=== PATIENT | female | born 1990 | race Caucasian/White ===

== ENCOUNTER 2017-03-07 09:22 | Outpatient (CLI) | payer OTHER ==
[2017-03-07 09:46] LABS: BASOPHILS # (AUTO) 0.2 K/uL (0.00-0.22); BASOPHILS % (AUTO) 2.8 % (0.0-2.0); EOSINOPHILS # (AUTO) 0.4 K/uL (0-0.4); HEMATOCRIT 39.2 % (36-48); HEMOGLOBIN 12.5 g/dL (12.0-16.0); LYMPHOCYTES # (AUTO) 1.9 K/uL (2.5-16.5); LYMPHOCYTES % (AUTO) 26.5 % (20.5-51.1); MEAN CORPUSCULAR HEMOGLOBIN 24 pg (27-31); MEAN CORPUSCULAR HGB CONC 32 g/dL (33-37); MEAN CORPUSCULAR VOLUME 75 fL (80-94); MONOCYTES # (AUTO) 0.4 K/uL (0.8-1.0); MONOCYTES % (AUTO) 5.3 % (1.7-9.3); NEUTROPHILS # (AUTO) 4.1 K/uL (1.8-7.7); NEUTROPHILS % (AUTO) 59.4 % (42.2-75.2); PLATELET COUNT (AUTO) 226 K/uL (140-450); RED BLOOD CELL COUNT(AUTO) 5.24 MIL/uL (4.20-5.40); RED CELL DISTRIBUTION WIDTH 13.8 % (11.6-13.7)
[2017-03-07 09:47] LABS: BILIRUBIN,URINE NEGATIVE (NEGATIVE); BLOOD, URINE NEGATIVE (NEGATIVE); COLOR,URINE YELLOW (YELLOW); LEUKOCYTE ESTERASE ,URINE TRACE (NEGATIVE); NITRITE, URINE NEGATIVE (NEGATIVE); PROTEIN,URINE NEGATIVE (NEGATIVE); UGLUCOSE NEGATIVE (NEGATIVE); UROBILINOGEN,URINE 0.2 EU/dL (0.2 - 1)
[2017-03-07 10:02] LABS: APPEARANCE,URINE HAZY (CLEAR)
[2017-03-07 10:04] LABS: BACTERIA,URINE 1+ /HPF (None Seen); MUCUS,URINE 1+ /LPF (None Seen); RBC,URINE 0-3 /HPF (0-5)
[2017-03-07 10:40] LABS: ALBUMIN 3.4 g/dL (3.4-5.0); ANION GAP 10.8 (8-16); CALCIUM 8.7 mg/dL (8.5-10.1); CARBON DIOXIDE 26.7 mmol/L (21-32); CHOL/HDL RATIO 2.7 (1-4.5); CREATININE 0.7 mg/dL (0.6-1.3); FREE T4 (FREE THYROXINE) 1.08 ng/dL (0.76-1.46); POTASSIUM 4.5 mmol/L (3.5-5.1); THYROID STIMULATING HORMONE 2.06 uIU/mL (0.34-3.74); TOTAL BILIRUBIN 0.3 mg/dL (0.0-1.0); TOTAL PROTEIN, SERUM 7.3 g/dL (6.4-8.2)
[2017-03-08 09:13] LABS: HEMOGLOBIN A1C 5.2 % (4.8-5.6)
[2017-03-08 09:52] LABS: VITAMIN D, 25-HYDROXY 21.3 ng/mL (30.0-100.0)
== END 2017-03-07 11:00 | disposition home or self-care (01) ==
LOC: MLB 09:22
PROVIDERS: ATTEND Family Medicine
DX: Z13.1 Encounter for screening for diabetes mellitus (principal); E03.9 Hypothyroidism, unspecified; E55.9 Vitamin D deficiency, unspecified
CPT/HCPCS: 36415; 80053; 81001; 82306; 83036; 84439; 84443; 85025

== ENCOUNTER 2017-07-23 10:02 | Outpatient (CLI) | payer OTHER | END 2017-07-23 22:50 | disposition home or self-care (01) | LOC: MRD 10:02 | PROVIDERS: ATTEND Family Medicine | DX: M41.9 Scoliosis, unspecified (principal); R29.890 Loss of height | CPT/HCPCS: 72081 ==

== ENCOUNTER 2017-08-18 16:41 | Outpatient (CLI) | payer OTHER | END 2017-08-18 19:44 | disposition home or self-care (01) | LOC: MRD 16:41 | PROVIDERS: ATTEND Family Medicine | DX: M25.472 Effusion, left ankle (principal) | CPT/HCPCS: 73610 ==

== ENCOUNTER 2017-08-24 09:25 | Emergency (ER) | payer OTHER ==
[~2017-08-24] VITALS: Ht 172.7 cm; Wt 105.5 kg
[2017-08-24 09:32] VITALS: BP 158/90
--- NOTE | 2017-08-24 10:00 | NUR ---
27 F BIB FRIEND WITH C/O RT/LT EYE IRRITATION WITH GREEN DISCHARGE ON RT EYE, HEARING MUFFLED TONE ON LT EAR; SORE THROAT/PAIN WHEN COUHGING 8/10 FOR 1 WK; PT DENIES ANY FEVER OR CHILLS; PT IS AOX4. RR ARE EVEN AND UNLABORED. NAD. ALL NEEDS MET AT THIS TIME. AWAITING ER MD CAMERON.
[2017-08-24 10:15] VITALS: BP 143/88
--- NOTE | 2017-08-24 10:15 | NUR ---
Patient discharged with v/s stable. Written and verbal after care instructions given and explained. Patient alert, oriented and verbalized understanding of instructions. Carried with steady gait. All questions addressed prior to discharge. ID band removed. Patient advised to follow up with PMD. Rx of cORTISPORIN AND pOLYTRIM given. Patient educated on indication of medication including possible reaction and side effects. Opportunity to ask questions provided and answered.
== END 2017-08-24 10:15 | disposition home or self-care (01) ==
LOC: EEVIPCON 09:25 → MED 09:25
DX: H10.9 Unspecified conjunctivitis (principal); H60.92 Unspecified otitis externa, left ear
CPT/HCPCS: 99283

== ENCOUNTER 2018-03-06 10:51 | Outpatient (CLI) | payer OTHER ==
[2018-03-06 11:40] LABS: BASOPHILS # (AUTO) 0.1 K/uL (0.00-0.22); EOSINOPHILS # (AUTO) 0.3 K/uL (0-0.4); EOSINOPHILS % (AUTO) 4.6 % (0.0-4.0); HEMOGLOBIN 13.1 g/dL (12.0-16.0); LYMPHOCYTES # (AUTO) 1.9 K/uL (2.5-16.5); LYMPHOCYTES % (AUTO) 29.2 % (20.5-51.1); MEAN CORPUSCULAR HEMOGLOBIN 24 pg (27-31); MEAN CORPUSCULAR HGB CONC 32 g/dL (33-37); MEAN CORPUSCULAR VOLUME 74.6 fL (80-94); MONOCYTES # (AUTO) 0.4 K/uL (0.8-1.0); MONOCYTES % (AUTO) 6.1 % (1.7-9.3); NEUTROPHILS # (AUTO) 3.9 K/uL (1.8-7.7); NEUTROPHILS % (AUTO) 59.1 % (42.2-75.2); PLATELET COUNT (AUTO) 259 K/uL (140-450); WHITE BLOOD COUNT (AUTO) 6.6 K/uL (4.8-10.8)
[2018-03-06 12:38] LABS: APPEARANCE,URINE HAZY (CLEAR); BILIRUBIN,URINE NEGATIVE (NEGATIVE); BLOOD, URINE 3+ (NEGATIVE); COLOR,URINE YELLOW (YELLOW); LEUKOCYTE ESTERASE ,URINE NEGATIVE (NEGATIVE); NITRITE, URINE NEGATIVE (NEGATIVE); UGLUCOSE NEGATIVE (NEGATIVE)
[2018-03-06 12:48] LABS: ALBUMIN 3.5 g/dL (3.4-5.0); ANION GAP 10.1 (8-16); CARBON DIOXIDE 27.1 mmol/L (21-32); CREATININE 0.6 mg/dL (0.6-1.3); POTASSIUM 4.2 mmol/L (3.5-5.1); THYROID STIMULATING HORMONE 1.6 uIU/mL (0.34-3.74); TOTAL BILIRUBIN 0.2 mg/dL (0.0-1.0)
[2018-03-06 12:49] LABS: RBC,URINE 3-10 (FEW) /HPF (0-5); WBC,URINE 0-5 (RARE) /HPF (0-5)
== END 2018-03-06 20:27 | disposition home or self-care (01) ==
LOC: MGI 10:51
PROVIDERS: ATTEND Family Medicine
DX: I10 Essential (primary) hypertension (principal)
CPT/HCPCS: 36415; 80053; 81001; 84443; 85025

== ENCOUNTER 2019-01-31 07:35 | Outpatient (CLI) | payer OTHER | END 2019-01-31 21:09 | disposition home or self-care (01) | LOC: MRD 07:35 | PROVIDERS: ATTEND Preventive Medicine Preventive Medicine/Occupational Environmental Medicine | DX: M47.816 Spondylosis without myelopathy or radiculopathy, lumbar region (principal); M48.061 Spinal stenosis, lumbar region without neurogenic claudication | CPT/HCPCS: 72100 ==

== ENCOUNTER 2019-05-11 07:01 | Outpatient (CLI) | payer OTHER ==
[2019-05-11 08:44] LABS: ALBUMIN 3.6 g/dL (3.4-5.0); CARBON DIOXIDE 27.1 mmol/L (21-32); CHOL/HDL RATIO 3.2 (1-4.5); CREATININE 0.7 mg/dL (0.6-1.3); POTASSIUM 4.1 mmol/L (3.5-5.1); THYROID STIMULATING HORMONE 1.95 uIU/mL (0.34-3.74); TOTAL BILIRUBIN 0.4 mg/dL (0.0-1.0)
[2019-05-11 08:55] LABS: BASOPHILS % (AUTO) 0.4 % (0.0-2.0); EOSINOPHILS # (AUTO) 0.2 K/uL (0-0.4); HEMATOCRIT 40.7 % (36-48); HEMOGLOBIN 12.8 g/dL (12.0-16.0); LYMPHOCYTES # (AUTO) 2.1 K/uL (2.5-16.5); LYMPHOCYTES % (AUTO) 27.3 % (20.5-51.1); MEAN CORPUSCULAR HEMOGLOBIN 24 pg (27-31); MEAN CORPUSCULAR HGB CONC 32 g/dL (33-37); MEAN CORPUSCULAR VOLUME 76.4 fL (80-94); MONOCYTES # (AUTO) 0.4 K/uL (0.8-1.0); MONOCYTES % (AUTO) 5.3 % (1.7-9.3); NEUTROPHILS # (AUTO) 4.8 K/uL (1.8-7.7); PLATELET COUNT (AUTO) 267 K/uL (140-450); RED BLOOD CELL COUNT(AUTO) 5.33 MIL/uL (4.20-5.40); RED CELL DISTRIBUTION WIDTH 14.7 % (11.6-13.7); WHITE BLOOD COUNT (AUTO) 7.5 K/uL (4.8-10.8)
[2019-05-11 10:09] LABS: BILIRUBIN,URINE NEGATIVE (NEGATIVE); BLOOD, URINE NEGATIVE (NEGATIVE); COLOR,URINE YELLOW (YELLOW); NITRITE, URINE NEGATIVE (NEGATIVE); UGLUCOSE NEGATIVE (NEGATIVE)
[2019-05-11 11:01] LABS: RBC,URINE 0-5 /HPF (0-5)
[2019-05-11 11:02] LABS: LEUKOCYTE ESTERASE ,URINE 1+ (NEGATIVE); WBC,URINE 0-5 /HPF (0-5)
[2019-05-11 11:03] LABS: APPEARANCE,URINE SLIGHTLY HAZY (CLEAR)
[2019-05-12 06:07] LABS: T4 (THYROXINE) 10.9 ug/dL (4.5-12.0); TRIIODOTHYRONINE FREE 3.9 pg/mL (2.0-4.4)
== END 2019-05-11 20:51 | disposition home or self-care (01) ==
LOC: MLB 07:01 → MMU 07:33 → MLB 07:33
PROVIDERS: ATTEND Preventive Medicine Preventive Medicine/Occupational Environmental Medicine
DX: E78.5 Hyperlipidemia, unspecified (principal); I10 Essential (primary) hypertension; E66.01 Morbid (severe) obesity due to excess calories; R53.83 Other fatigue
CPT/HCPCS: 36415; 80053; 81001; 82306; 83036; 84436; 84443; 84481; 85025; 87086

== ENCOUNTER 2019-07-17 12:47 | Emergency (ER) | payer OTHER ==
[~2019-07-17] VITALS: Ht 172.7 cm; Wt 123.8 kg
[2019-07-17 12:51] VITALS: BP 153/92
--- NOTE | 2019-07-17 12:58 | NUR ---
Patient ambulated to bed 4. RN evaluating patient at bedside.
--- NOTE | 2019-07-17 13:06 | NUR ---
Dr. Jensen is evaluating the patient at bedside.
[2019-07-17 13:17] VITALS: BP 153/92
--- NOTE | 2019-07-17 13:17 | NUR ---
PER DR LI TO CANCEL ALL ORDERS PENDING AND D/C PATIENT.
--- NOTE | 2019-07-17 13:17 | NUR ---
Patient discharged with v/s stable. Written and verbal after care instructions given and explained. Patient alert, oriented and verbalized understanding of instructions. Ambulatory with steady gait. All questions addressed prior to discharge. ID band removed. Patient advised to follow up with PMD. Rx of TRAMADOL, MOTRIN given. Patient educated on indication of medication including possible reaction and side effects. Opportunity to ask questions provided and answered.
== END 2019-07-17 13:17 | disposition home or self-care (01) ==
LOC: MED 12:47
DX: M54.40 Lumbago with sciatica, unspecified side (principal)
CPT/HCPCS: 99281

== ENCOUNTER 2020-09-24 09:44 | Outpatient (CLI) | payer OTHER ==
[2020-09-24 10:14] LABS: BASOPHILS % (AUTO) 0.5 % (0.0-2.0); EOSINOPHILS # (AUTO) 0.4 K/uL (0-0.4); HEMATOCRIT 40.2 % (36-48); HEMOGLOBIN 12.9 g/dL (12.0-16.0); LYMPHOCYTES # (AUTO) 2.3 K/uL (2.5-16.5); LYMPHOCYTES % (AUTO) 29.4 % (20.5-51.1); MEAN CORPUSCULAR HEMOGLOBIN 24 pg (27-31); MEAN CORPUSCULAR HGB CONC 32 g/dL (33-37); MEAN CORPUSCULAR VOLUME 74.4 fL (80-94); MONOCYTES # (AUTO) 0.4 K/uL (0.8-1.0); MONOCYTES % (AUTO) 5.4 % (1.7-9.3); NEUTROPHILS # (AUTO) 4.6 K/uL (1.8-7.7); NEUTROPHILS % (AUTO) 59.7 % (42.2-75.2); PLATELET COUNT (AUTO) 283 K/uL (140-450); RED BLOOD CELL COUNT(AUTO) 5.41 MIL/uL (4.20-5.40); RED CELL DISTRIBUTION WIDTH 14.9 % (11.6-13.7); WHITE BLOOD COUNT (AUTO) 7.8 K/uL (4.8-10.8)
[2020-09-24 10:30] LABS: APPEARANCE,URINE HAZY (CLEAR); BILIRUBIN,URINE NEGATIVE (NEGATIVE); BLOOD, URINE NEGATIVE (NEGATIVE); COLOR,URINE AMBER (YELLOW); LEUKOCYTE ESTERASE ,URINE 1+ (NEGATIVE); UGLUCOSE NEGATIVE (NEGATIVE)
[2020-09-24 10:37] LABS: ALBUMIN 3.5 g/dL (3.4-5.0); ANION GAP 10.8 (8-16); CHOL/HDL RATIO 2.9 (1-4.5); CREATININE 0.6 mg/dL (0.6-1.3); FREE T4 (FREE THYROXINE) 1.02 ng/dL (0.76-1.46); NITRITE, URINE POSITIVE (NEGATIVE); POTASSIUM 4.8 mmol/L (3.5-5.1); RBC,URINE 0-5 /HPF (0-5); THYROID STIMULATING HORMONE 1.33 uIU/mL (0.34-3.74); TOTAL BILIRUBIN 0.3 mg/dL (0.0-1.0); WBC,URINE 0-5 /HPF (0-5)
== END 2020-09-24 20:09 | disposition home or self-care (01) ==
LOC: MLB 09:44
PROVIDERS: ATTEND Preventive Medicine Preventive Medicine/Occupational Environmental Medicine
DX: E78.5 Hyperlipidemia, unspecified (principal); E55.9 Vitamin D deficiency, unspecified; Z13.0 Encounter for screening for diseases of the blood and blood-forming organs and certain disorders involving the immune mechanism; Z13.29 Encounter for screening for other suspected endocrine disorder; Z00.00 Encounter for general adult medical examination without abnormal findings
CPT/HCPCS: 36415; 80053; 81001; 82306; 83036; 84439; 84443; 85025; 87086